=== PATIENT | male | born 1985 | race Caucasian/White ===

== ENCOUNTER 2023-04-21 13:19 | Inpatient (IN) | payer MEDICAID, SELFPAY ==
[2023-04-21] VITALS (7 sets, daily range): BP systolic 161–202; BP diastolic 79–120; PULSE 98–132; RESP 14–18; TEMP 36.2–36.8; O2SAT 97–99; BMI 31.9; BMI 29.5
--- NOTE | 2023-04-21 14:11 | EX.ED.SAOD ---
HPI History of Present Illness Chief Complaint: ETOH Intox Detail of Chief Complaint: Alcohol abuse. Alcohol withdrawal. Informant: patient and parent Onset/Context/Timing Onset: Today Context: Gradual Onset Timing: Continuous Current Severity: Moderate Maximum Severity: Moderate Associated Symptoms Associated Symptoms: Positive for vomiting* and tremor Narrative Narrative: 37-year-old male history of alcoholism. Drinks about 8-10 beers a day. Last drink yesterday. Believes he is going through withdrawal. Is considering detox. Patient is accompanied by his mother. Denies prior detox. States he had nausea and vomiting today. Tremors. Prior similar symptoms: Yes Recent Illness/Hospitalization: No PFSH PFSH Allergy/AdvReac Type Severity Reaction Status Date / Time No Known Allergies Allergy Verified 04/21/23 13:24 Social History Smoking Status: Never smoker ROS ROS ED ROS Narrative Nausea and vomiting. Tremors. Review of Systems ROS Unobtainable: Denies due to encephalopathy Constitutional Constitutional ED: Denies chills or fever(s) Eyes Eyes: Denies blurry vision ENT ENT ED: Denies ear pain Cardiovascular Cardiovascular: Denies chest pain Respiratory/Chest Respiratory/Chest: Denies cough or dyspnea Gastrointestinal Gastrointestinal: Reports nausea and vomiting; Denies abdominal pain, constipation, diarrhea or melena Genitourinary Genitourinary ED: Denies dysuria Musculoskeletal Musculoskeletal: Denies arthralgias Integumentary Denies abscess Neurologic Neurologic: Denies headache(s) Psychiatric Psychiatric: Denies anxiety or depression Endocrine Endocrinology: Denies cold intolerance Hematologic/Lymphatic Hematologic/Lymphatic: Denies easy bleeding Allergic/Immunologic Allergic/Immunologic ED: Denies mouth swelling EXAM Physical Exam Narrative Exam Narrative: 37-year-old male vital signs are stable his blood pressure is 202/103 and his pulse rate is 132. He is in withdrawal. Mom at bedside. H EENT exam unremarkable. He is diaphoretic. Neck nontender. Lungs clear. Heart tachycardic rate of 130 no murmur. Chest wall nontender. Abdomen soft nontender. Moving all 4 extremities. Nontender no edema. He is awake and alert. Answering questions following commands. He has tremors. Const Vital Signs: 04/21/23 13:21 04/21/23 13:20 04/21/23 15:24 Temperature 97.1 F L 97.8 F Temperature Source Temporal Temporal Pulse Rate 132 H 115 H 98 Respiratory Rate 18 16 16 Blood Pressure 202/103 H 164/79 H 174/99 H Blood Pressure Mean 136 107 124 Blood Pressure Source Monitor Pulse Ox 99 98 98 Oxygen Delivery Method Room Air Room Air Room Air Positive well nourished and well developed; Negative for cachectic, contractures or unkempt General Appearance ED: well developed; Negative for unkempt, cachectic, contractures or NAD Nutritional Appearance: Negative for cachectic HEENT Reports moist mucous membranes Negative for atraumatic, trauma or tenderness Eyes PERRL and EOMs intact bilaterally General Eye ED: Yes pale conjunctiva; Negative for scleral icterus Neck no lymphadenopathy, supple and no JVD Thyroid: Negative for tender Lymph Lymphatic: no lymphadenopathy noted; Negative for lymphadenopathy Chest Wall inspection of chest normal and palpation of chest normal Resp normal respiratory effort and clear to auscultation bilaterally Effort and Inspection: Negative for retractions Auscultation: Negative for rales, rhonchi or wheezes Cardio regular rhythm, S1 normal heart sound, S2 normal heart sound and no murmurs; Negative for regular rate Rate: tachycardic GI soft to palpation, non-tender, non-distended and no masses Inspection: Negative for abdominal distention Palpation: Negative for tender Back/Spine no CVA tenderness General Back: Negative for CVA tenderness Cervical Spine: Negative for cervical spine tenderness Thoracic Spine / Upper Back: Negative for thoracic spinal tenderness Lumbar Spine / Lower Back: Negative for lumbar spinal tenderness Coccyx: Negative for swelling Extremity General Extremety ED: Negative for edema or tenderness General Extremity: Negative for edema Neuro oriented x3 and CN's II-XII intact bilaterally Sensorium / Orientation: alert, oriented to person, oriented to place and oriented to time; Negative for confused, lethargic or stuporous Speech: speech normal Gait (Neuro): Negative for normal gait Motor Exam: strength 5/5 throughout Psych mental status grossly normal and thought process normal Appearance: Negative for unkempt Attitude: No belligerent, No agitated, No aggressive and No hostile Mood & Affect: anxious; Negative for depressed or tearful Skin General Skin Exam: Negative for jaundice Lesions: no lesions Rashes: no rashes Trauma: Negative for abrasion MDM MDM MDM Narrative Medical decision making narrative: 37-year-old male alcohol abuse currently going through alcohol withdrawal reported last drink was yesterday. Treat with IV fluids, screening labs. Zofran and Ativan. Reassessed. He is considering inpatient detox. Repeat exam patient looks much better after IV fluids, Ativan and Zofran. Clinically improved. He and I and his mother at bedside a long discussion he is willing to be admitted for detox. He has some type of appointment that he has to make on Friday and will discuss that with the hospitalist. Lab Data Attestation: I reviewed the patient's lab results. Lab results narrative: CBC shows a white count 8.5. H&H is 16 and 48. Platelets 208. Electrolytes show sodium 133 gap of 9. BUN and creatinine is 6 and 0.7. Liver enzymes are elevated. Including his AST, ALT. Alcohol level is only 12. Labs: Laboratory Results - last 24 hr 04/21/23 14:52 WBC 8.5 RBC 4.75 Hgb 16.3 Hct 48.0 MCV 101.1 H MCH 34.3 H MCHC 34.0 RDW Std Deviation 49.2 H RDW Coeff of Iman 13.1 Plt Count 208 MPV 9.8 Immature Gran % (Auto) 0.100 Neut % (Auto) 78.7 H Lymph % (Auto) 12.9 L [place] % (Auto) 7.0 Eos % (Auto) 0.1 Baso % (Auto) 1.2 H Absolute Neuts (auto) 6.7 Absolute Lymphs (auto) 1.09 Nucleated RBC % 0 Sodium 133 L Potassium 4.4 Chloride 100 Carbon Dioxide 24.0 Anion Gap 9 BUN 6 L Creatinine 0.71 Estim Creat Clear Calc 136.48 Est GFR (MDRD) Af Amer 158 Est GFR (MDRD) Non-Af 131 BUN/Creatinine Ratio 8.4 L Glucose 119 H Calcium 9.9 Total Bilirubin 1.20 H AST 191 H ALT 286 H Alkaline Phosphatase 115 Total Protein 9.3 H Albumin 5.0 Globulin 4.3 H Albumin/Globulin Ratio 1.2 Ethyl Alcohol 12.0 Discharge Plan Triage Chief Complaint: ETOH Intox ED Provider: Robert King Dx/Rx/DC Orders Clinical Impression: Acute alcoholism, Admitted to alcohol detoxification center, Alcohol withdrawal, Elevated liver enzymes Primary Care Provider: Pedrito Elkins Referrals: Pedrito Elkins MD [Primary Care Provider] - Disposition Disposition: [facility]
[2023-04-21] MEDS: 0.9% Normal Saline 1,000 ML 999 ML IV (15:02)
[2023-04-21] MEDS: Ondansetron 4 MG/2 ML Vial IV (15:02)
[2023-04-21] MEDS: LORazepam 2 MG/ML Syringe 1 MG IV (15:03)
[2023-04-21 15:12] LABS: Absolute Lymphocyte Count 1.09 X10^3/uL (0.83-4.51); Absolute Neutrophil Count 6.7 X10^3/uL (2.0-7.7); Basophil% 1.2 % (0-1); Eosinophil# 0.01 X10^3/uL; Eosinophils% 0.1 % (0-5); Hemoglobin 16.3 g/dL (13.0-16.5); Lymphocyte # 1.09 X10^3/ul (0.83-4.51); Lymphocyte % 12.9 % (19-41); Mean Corpuscular Hgb 34.3 pg (27.0-32.0); Mean Corpuscular Volume 101.1 fL (80-94); Mean Platelet Vol. 9.8 fl (6.2-12.0); Monocyte# 0.59 X10^3/uL; NRBC Flagged by Analyzer 0 % (0-5); Neutrophil # 6.65 X10^3/uL (2.7-7.7); Neutrophil % 78.7 % (47-70); Platelet Count 208 K/mm3 (150-450); RBC Distribution Width CV 13.1 % (11.6-14.6); RBC Distribution Width SD 49.2 fl (35.1-43.9); Red Blood Count 4.75 M/mm3 (4.6-6.2); White Blood Count 8.5 K/mm3 (4.4-11.0)
[2023-04-21 15:30] LABS: ALB/GLOB Ratio 1.2 RATIO (0.9-2.4); AST(SGOT) 191 U/L (15-37); Alanine Aminotransfer ALT/SGPT 286 U/L (16-61); Alkaline Phosphatase 115 U/L (45-117); Anion Gap 9 (5-15); BUN 6 mg/dL (7-18); BUN/Creat Ratio 8.4 RATIO (10-20); Calcium,Total 9.9 mg/dL (8.5-10.1); Chloride 100 mmol/L (98-107); Creatinine, Serum 0.71 mg/dL (0.70-1.30); EST Glomerular Filtration Rate 131 mL/min (>60); Est Glom Filt Rate - Afr Amer 158 mL/min (>60); Estimated Creatinine Clearance 136.48 ml/min; Globulin 4.3 g/dL (2.2-4.2); Glucose 119 mg/dL (74-106); Potassium 4.4 mmol/L (3.5-5.1); Protein, Total 9.3 g/dL (6.4-8.2); Sodium Level 133 mmol/L (136-145)
--- NOTE | 2023-04-21 16:16 | PCM.HP.STD ---
HPI - General General Date of Admission: 04/21/23 HPI Narrative ANTHONY GUTHRIE, is a 37 M who presents to the hospital requesting detox from alcohol. He drinks about 8-12 beers a day and his last drink was yesterday. On presentation he was very symptomatic which has improved with some IV fluids and Ativan in the ER. He denies any other drug use. Denies tobacco abuse. He has been a heavy drinker for about the last 10 years when he has had periods of sobriety denies any seizures with those episodes but is never formally gone through detox before [facility] no medical history Allergy/AdvReac Type Severity Reaction Status Date / Time No Known Allergies Allergy Verified 04/21/23 13:24 Family History (Updated 04/21/23 @ 16:[address] Enrique Teran MD) Other Cancer Diabetes Surgical History (Updated 04/21/23 @ 16:[address] Enrique Teran MD) Status post tonsillectomy and adenoidectomy Social History Smoking Status: Never smoker ROS Constitutional Constitutional: Denies chills, fatigue, fever(s) or malaise Eyes Eyes: Denies blurry vision ENT HEENT: Denies headache(s) or nasal discharge Cardiovascular Cardiovascular: Denies chest pain, dyspnea on exertion or syncope Respiratory/Chest Respiratory/Chest: Denies cough, shortness of breath at rest or shortness of breath with exertion Gastrointestinal Gastrointestinal: Reports nausea and vomiting; Denies constipation or diarrhea Genitourinary Genitourinary: Denies dysuria Neurologic Neurologic: Reports tremor(s); Denies focal weakness or numbness Psychiatric Psychiatric: Denies anxiety or depression Vital Signs Vital Signs Vital Signs: 04/21/23 13:21 04/21/23 13:20 04/21/23 15:24 Temperature 97.1 F L 97.8 F Temperature Source Temporal Temporal Pulse Rate 132 H 115 H 98 Respiratory Rate 18 16 16 Blood Pressure 202/103 H 164/79 H 174/99 H Blood Pressure Mean 136 107 124 Blood Pressure Source Monitor Pulse Ox 99 98 98 Oxygen Delivery Method Room Air Room Air Room Air Weight Weight: 210 lb Body Mass Index (BMI) 31.9 Physical Exam Narrative General: Alert, Oriented x3, Cooperative, No apparent distress, restless, diaphoretic HEENT: Atraumatic, PERRLA, EOMI, Normocephalic Oral: Moist Mucosa Neck: Supple, No JVD Lungs: Clear to auscultation, Normal air movement, No rhonchi, No wheeze, No rales Cardiovascular: Tachycardic, Regular Rhythm, Normal S1, Normal S2, No murmurs Abdomen: Soft, Non Tender, Non-Distended, No Hepato-splenomegaly Extremities: No edema, Capillary Refill Less than 3 Seconds Skin: No rashes, No breakdown Musculoskeletal: No Tenderness to Palpation of Joints or Extremities Neurological: Cranial nerves II-XII grossly intact, Motor Exam 5/5 strength throughout, Sensory exam intact to light touch and pain Psych/Mental Status: Flat affect Results Lab / Micro Data 04/21/23 14:52 04/21/23 14:52 Labs: Laboratory Results - last 24 hr 04/21/23 14:52: WBC 8.5, RBC 4.75, Hgb 16.3, Hct 48.0, MCV 101.1 H, MCH 34.3 H, MCHC 34.0, RDW Std Deviation 49.2 H, RDW Coeff of Iman 13.1, Plt Count 208, MPV 9.8, Immature Gran % (Auto) 0.100, Neut % (Auto) 78.7 H, Lymph % (Auto) 12.9 L, [place] % (Auto) 7.0, Eos % (Auto) 0.1, Baso % (Auto) 1.2 H, Absolute Neuts (auto) 6.7, Absolute Lymphs (auto) 1.09, Nucleated RBC % 0, Sodium 133 L, Potassium 4.4, Chloride 100, Carbon Dioxide 24.0, Anion Gap 9, BUN 6 L, Creatinine 0.71, Estim Creat Clear Calc 136.48, Est GFR (MDRD) Af Amer 158, Est GFR (MDRD) Non-Af 131, BUN/Creatinine Ratio 8.4 L, Glucose 119 H, Calcium 9.9, Total Bilirubin 1.20 H, AST 191 H, ALT 286 H, Alkaline Phosphatase 115, Total Protein 9.3 H, Albumin 5.0, Globulin 4.3 H, Albumin/Globulin Ratio 1.2, Ethyl Alcohol 12.0 Assessment & Plan Assessment/Plan (1) Desire for detoxification: (2) ETOH abuse: PLAN: Plan 1. Alcohol withdrawal/elevated LFTs ? Continue with the alcohol withdrawal protocol ? His LFTs are elevated, will monitor with the morning CMP ? We will have 180 follow-up for discharge planning DVT: Ambulation Charges/Coding Visit Charges Inpatient E&M: 82673 Init Hosp L2
[2023-04-21] MEDS: Gabapentin 300 MG Capsule PO (17:47)
[2023-04-21] MEDS: Dicyclomine 10 MG Capsule 20 MG PO (17:48)
[2023-04-21] MEDS: Ondansetron 8 MG Tablet PO (17:48)
[2023-04-21] MEDS: Phenobarbital 32.4 MG Tablet 64.8 MG PO ×2 (17:48→21:10)
[2023-04-21] MEDS: hydrOXYzine PAM 25 MG Capsule 50 MG PO (19:24)
[2023-04-21] MEDS: cloNIDine HCl 0.1 MG Tablet PO ×2 (19:24→21:10)
[2023-04-21] MEDS: traZODone 100 MG Tablet PO (21:11)
[2023-04-22 02:02] VITALS: BP 138/91; PULSE 90; RESP 14; TEMP 36.5; O2SAT 98
[2023-04-22] MEDS: Phenobarbital 32.4 MG Tablet 64.8 MG PO ×6 (02:04→20:59)
[2023-04-22 05:42] VITALS: BP 134/91; PULSE 83; RESP 14; TEMP 36.6; O2SAT 99
[2023-04-22] MEDS: cloNIDine HCl 0.1 MG Tablet PO ×3 (05:44→20:59)
[2023-04-22 07:27] LABS: ALB/GLOB Ratio 1.1 RATIO (0.9-2.4); AST(SGOT) 110 U/L (15-37); Alanine Aminotransfer ALT/SGPT 194 U/L (16-61); Albumin, Serum 3.8 g/dL (3.2-5.0); Alkaline Phosphatase 90 U/L (45-117); Anion Gap 4 (5-15); BUN 10 mg/dL (7-18); BUN/Creat Ratio 12.3 RATIO (10-20); Calcium,Total 8.9 mg/dL (8.5-10.1); Chloride 104 mmol/L (98-107); Creatinine, Serum 0.82 mg/dL (0.70-1.30); EST Glomerular Filtration Rate 112 mL/min (>60); Est Glom Filt Rate - Afr Amer 136 mL/min (>60); Estimated Creatinine Clearance 118.17 ml/min; Globulin 3.5 g/dL (2.2-4.2); Glucose 105 mg/dL (74-106); Potassium 4.3 mmol/L (3.5-5.1); Protein, Total 7.3 g/dL (6.4-8.2); Sodium Level 134 mmol/L (136-145)
[2023-04-22 09:19] VITALS: BP 148/82; PULSE 103; RESP 18; TEMP 36.6; O2SAT 97
[2023-04-22] MEDS: Folic Acid 1 MG Tablet PO (09:26)
[2023-04-22] MEDS: hydrOXYzine PAM 25 MG Capsule 50 MG PO ×3 (09:26→19:54)
[2023-04-22] MEDS: Dicyclomine 10 MG Capsule 20 MG PO ×2 (09:26→17:09)
[2023-04-22] MEDS: Thiamine Hydrochloride 100 MG Tablet PO (09:26)
[2023-04-22] MEDS: Ondansetron 8 MG Tablet PO (09:26)
--- NOTE | 2023-04-22 12:43 | CHAPLAIN ---
Type of Pastoral Visit _x__ Initial Visit ___ Follow-up Visit ___ On-call Visit ___ General Patient Visit ___ Spiritual Assessment ___ Family Conference ___ Bereavement ___ Rapid Response ___ Code Blue ___ Other (describe below) Pastoral Care Referral From _x__ Patient ___ Family ___ Nurse ___ Physician ___ [place] Cutter ___ Applied Technologist ___ Other (describe below) Sacrament/Intervention _x__ Active listening ___ Anointing ___ Shinto ___ Bereavement ___ Communion _x__ Shyanne exploration ___ _x__ Life review _x__ Prayer ___ Reconciliation ___ Sacrament of Sick _x__ Supportive presence ___ Wedding ___ Other (describe below) Pastoral Comments patient requested that to start the visit that he have a prayer said for him; offered prayer and allowed pt to speak about his move back to [place]/family and how he wants to stop the abuse of alcohol; patient has some support from his parents; pt lost his job and will look for a new one; pt has plans to use 180 for coping skills development as he recognizes that anxiety/stress is a problem for him; pt reviews his taoism shyanne and looking for spiritual help; pt is open to further visits
[2023-04-22 13:55] VITALS: BP 143/96; PULSE 99; RESP 18; TEMP 36.3; O2SAT 97
--- NOTE | 2023-04-22 16:12 | PCM.PN.HOSP ---
Reason for Visit Reason for Visit: Diagnoses Alcohol abuse, uncomplicated (04/21/23) Subjective Subjective Patient was seen and examined today, he did not meet with addiction social media developer today because he was too tired per nursing. Patient states that he has an outstanding DUI. Objective Data Objective Data Vital Signs: Vital Signs Temp Pulse Resp BP Pulse Ox O2 Del Method 97.4 F L 99 18 143/96 H 97 Room Air 04/22/23 13:55 04/22/23 13:55 04/22/23 13:55 04/22/23 13:55 04/22/23 13:55 04/22/23 13:55 Oxygen Delivery Method Room Air Weight: 88.3 kg Body Mass Index (BMI) 29.5 Intake & Output: Intake and Output for Last 24 Hours 04/20/23 04/21/23 04/22/23 23:59 23:59 23:59 Intake Total 1000 / 1600 1400 / 1400 Balance 1000 / 1600 1400 / 1400 Lab / Micro Data 04/21/23 14:52 04/22/23 06:50 Labs: Laboratory Results - last 24 hr 04/22/23 06:50: Sodium 134 L, Potassium 4.3, Chloride 104, Carbon Dioxide 26.0, Anion Gap 4 L, BUN 10, Creatinine 0.82, Estim Creat Clear Calc 118.17, Est GFR (MDRD) Af Amer 136, Est GFR (MDRD) Non-Af 112, BUN/Creatinine Ratio 12.3, Glucose 105, Calcium 8.9, Total Bilirubin 1.90 H, AST 110 H, ALT 194 H, Alkaline Phosphatase 90, Total Protein 7.3, Albumin 3.8, Globulin 3.5, Albumin/Globulin Ratio 1.1 Physical Exam Const alert, oriented x3, no apparent distress and average body habitus General Appearance: cooperative, well kempt and well developed Orientation / Consciousness: awake, oriented to person, oriented to place and oriented to time HEENT normocephalic, head/scalp atraumatic and moist oral mucous membranes Eyes PERRL, EOMs intact bilaterally and conjunctivae normal Neck supple, no JVD, thyroid normal and no carotid bruits General: trachea midline Resp normal respiratory effort, no retractions, no use of accessory muscles and clear to auscultation bilaterally Auscultation: Negative for rales, rhonchi or wheezes Cardio regular rate, regular rhythm, S1 normal heart sound, S2 normal heart sound, no murmurs, no rub and no gallops GI normal to inspection, nondistended, normoactive bowel sounds, soft to palpation, non-tender and non-distended Extremity no clubbing, cyanosis or edema Skin no rashes or lesions noted General Skin Exam: no breakdown Neuro oriented x3, CN's II-XII intact bilaterally, moves all extremities, no focal motor deficits and no sensory deficits noted Sensorium / Orientation: awake, alert, oriented to person, oriented to place and oriented to time Speech: speech normal Psych Psych Narrative: Patient has a flat affect Assessment & Plan Assessment/Plan (1) Desire for detoxification: PLAN: Plan 1. Acute alcohol withdrawal-patient will continue on his present medications, he will meet with addiction social media developer tomorrow #2 chronic alcoholism-patient will need a follow-up plan after discharge from the hospital, I discussed this briefly with him. #3 elevated liver enzymes-secondary to chronic alcohol usage, I will repeat the patient's liver profile tomorrow Total clinical time spent by myself addressing the patient's medical issues, reviewing all of his data, and collaborating with patient's care team: 25 minutes Charges/Coding Visit Charges Inpatient E&M: 67284 [facility] Hosp L1
[2023-04-22] MEDS: Gabapentin 300 MG Capsule PO (19:54)
[2023-04-22] MEDS: traZODone 100 MG Tablet PO (20:59)
[2023-04-22 21:00] VITALS: BP 149/94; PULSE 79; RESP 17; TEMP 36.8; O2SAT 100
[2023-04-23] MEDS: Phenobarbital 32.4 MG Tablet 64.8 MG PO ×2 (01:15→05:08)
[2023-04-23] MEDS: cloNIDine HCl 0.1 MG Tablet PO ×3 (05:08→22:49)
[2023-04-23 05:10] VITALS: BP 106/71; PULSE 76; RESP 17; TEMP 36.3; O2SAT 98
[2023-04-23 07:41] LABS: AST(SGOT) 100 U/L (15-37); Alanine Aminotransfer ALT/SGPT 179 U/L (16-61); Albumin, Serum 3.7 g/dL (3.2-5.0); Alkaline Phosphatase 85 U/L (45-117); Bilirubin, Direct 0.43 mg/dL (0.00-0.30); Globulin 3.4 g/dL (2.2-4.2); Protein, Total 7.1 g/dL (6.4-8.2)
[2023-04-23] MEDS: Folic Acid 1 MG Tablet PO (08:51)
[2023-04-23] MEDS: Thiamine Hydrochloride 100 MG Tablet PO (08:51)
[2023-04-23 11:10] VITALS: BP 112/84; PULSE 85; RESP 18; TEMP 36.3; O2SAT 98
[2023-04-23] MEDS: Phenobarbital 32.4 MG Tablet PO ×2 (15:00→22:49)
--- NOTE | 2023-04-23 16:27 | PN.HOSP_ITS ---
Reason for Visit Reason for Visit: Diagnoses Alcohol abuse, uncomplicated (04/21/23) Subjective Subjective Patient was seen and examined today, he still complains of feeling sleepy, I have elected to cut down his phenobarbital dosage. Patient's liver enzymes are improving. According to addiction nursing home social worker, patient will follow-up with [facility] for outpatient detox. Objective Data Objective Data Vital Signs: Vital Signs Temp Pulse Resp BP Pulse Ox O2 Del Method 97.4 F L 85 18 112/84 H 98 Room Air 04/23/23 11:10 04/23/23 11:10 04/23/23 11:10 04/23/23 11:10 04/23/23 11:10 04/23/23 11:10 Oxygen Delivery Method Room Air Weight: 88.3 kg Body Mass Index (BMI) 29.5 Intake & Output: Intake and Output for Last 24 Hours 04/21/23 04/22/23 04/23/23 23:59 23:59 23:59 Intake Total 1000 / 1600 1400 / 1400 Balance 1000 / 1600 1400 / 1400 Lab / Micro Data 04/21/23 14:52 04/22/23 06:50 Labs: Laboratory Results - last 24 hr 04/23/23 05:40: Total Bilirubin Cancelled, Direct Bilirubin Cancelled, AST Cancelled, ALT Cancelled, Alkaline Phosphatase Cancelled, Total Protein Cancelled, Albumin Cancelled, Globulin Cancelled 04/23/23 07:00: Total Bilirubin 1.30 H, Direct Bilirubin 0.43 H, AST 100 H, ALT 179 H, Alkaline Phosphatase 85, Total Protein 7.1, Albumin 3.7, Globulin 3.4 Physical Exam Const alert, oriented x3 and no apparent distress General Appearance: cooperative, well kempt and well developed Orientation / Consciousness: awake, oriented to person, oriented to place and oriented to time HEENT normocephalic, head/scalp atraumatic and moist oral mucous membranes Eyes PERRL, EOMs intact bilaterally and conjunctivae normal Neck supple, no JVD, thyroid normal and no carotid bruits General: trachea midline Resp normal respiratory effort, no retractions, no use of accessory muscles and clear to auscultation bilaterally Auscultation: Negative for rales, rhonchi or wheezes Cardio regular rate, regular rhythm, S1 normal heart sound, S2 normal heart sound, no murmurs, no rub and no gallops GI normal to inspection, nondistended, normoactive bowel sounds, soft to palpation, non-tender and non-distended Extremity no clubbing, cyanosis or edema Skin no rashes or lesions noted General Skin Exam: no breakdown Neuro oriented x3, CN's II-XII intact bilaterally, moves all extremities, no focal motor deficits and no sensory deficits noted Sensorium / Orientation: awake, alert, oriented to person, oriented to place and oriented to time Speech: speech normal Psych affect normal Assessment & Plan Assessment/Plan (1) ETOH abuse: (2) Desire for detoxification: PLAN: Plan 1. Acute alcohol withdrawal-patient will continue on his present medications-I have adjusted his phenobarbital dosage, he will follow-up with [facility] as an outpatient after discharge #2 chronic alcoholism-complicates care, medical course, recovery, and prognosis #3 elevated liver enzymes-secondary to chronic alcohol usage, patient's liver enzymes were improved today Total clinical time spent by myself addressing the patient's medical issues, reviewing all of his data, and collaborating with patient's care team: 25 minutes Charges/Coding Visit Charges Inpatient E&M: 83382 Subs Hosp L1
[2023-04-23 17:10] VITALS: BP 110/75; PULSE 79; RESP 16; TEMP 36.7; O2SAT 100
[2023-04-23 22:41] VITALS: BP 142/93; PULSE 81; RESP 18; TEMP 36.6; O2SAT 98
[2023-04-23] MEDS: hydrOXYzine PAM 25 MG Capsule 50 MG PO (22:49)
[2023-04-24 05:26] VITALS: BP 106/76; PULSE 84; RESP 18; TEMP 36.6; O2SAT 98
[2023-04-24] MEDS: Phenobarbital 32.4 MG Tablet PO ×2 (05:30→13:33)
[2023-04-24] MEDS: cloNIDine HCl 0.1 MG Tablet PO ×2 (05:30→13:33)
[2023-04-24] MEDS: Thiamine Hydrochloride 100 MG Tablet PO (08:31)
[2023-04-24] MEDS: Folic Acid 1 MG Tablet PO (08:31)
[2023-04-24 08:55] VITALS: BP 116/80; PULSE 92; RESP 16; TEMP 36.4; O2SAT 98
--- NOTE | 2023-04-24 10:38 | ADDICTION ---
This property underwriter met with PT to conduct ASAM, MSE, AUDIT, DUDIT assessments and to plan for d/c. PT A+Ox4 and participated actively. All assessments completed and placed in PT's chart. PT plans to f/u with [facility] in [place] for follow-up Outpatient treatment services. Pt did not report a need for transportation once discharged.
[2023-04-24 11:37] VITALS: BP 124/84; PULSE 91; RESP 16; TEMP 36.6; O2SAT 99
--- NOTE | 2023-04-24 12:08 | DS.PCM_ITS ---
Providers Date of Admission: 04/21/23 Primary Care Physician: Dr. Pedrito Elkins MD Reason For Visit: ETOH DETOX Diagnosis Discharge Diagnosis (1) ETOH abuse: Status: Acute Code(s): F10.10 - Alcohol abuse, uncomplicated (2) Desire for detoxification: Status: Acute Hospital Course Operations None Procedures None Summary of Care Provided Minutes Spent on Discharge: 36 Hospital Course: Per HPI: ANTHONY GUTHRIE, is a 37 M who presents to the hospital requesting detox from alcohol. He drinks about 8-12 beers a day and his last drink was yesterday. On presentation he was very symptomatic which has improved with some IV fluids and Ativan in the ER. He denies any other drug use. Denies tobacco abuse. He has been a heavy drinker for about the last 10 years when he has had periods of sobriety denies any seizures with those episodes but is never formally gone through detox before Hospital Course: 1. Alcohol withdrawal/elevated LFTs?37-year-old male who has been alcoholic for quite a long time presented to the hospital requesting detox. He does have a court date for it DWI that had to be postponed secondary to his treatment. He did complete the alcohol withdrawal protocol and feels much better today. He met with 180 to set up appointment with [facility], he is concerned about seeing his court date first so he would like to go home today to set up his court date prior to committing to a new [facility] appointments. I discussed with him the plan for discharge today he expressed understanding of the risk and benefits of going home and would like to go home today. Of note his liver function tests are improving likely related to his alcohol. Physical Exam Narrative General: Alert, Oriented x3, Cooperative, No apparent distress HEENT: Atraumatic, PERRLA, EOMI, Normocephalic Oral: Moist Mucosa Neck: Supple, No JVD Lungs: Clear to auscultation, Normal air movement, No rhonchi, No wheeze, No rales Cardiovascular: Tachycardic, Regular Rhythm, Normal S1, Normal S2, No murmurs Abdomen: Soft, Non Tender, Non-Distended, No Hepato-splenomegaly Extremities: No edema, Capillary Refill Less than 3 Seconds Skin: No rashes, No breakdown Musculoskeletal: No Tenderness to Palpation of Joints or Extremities Neurological: Cranial nerves II-XII grossly intact, Motor Exam 5/5 strength throughout, Sensory exam intact to light touch and pain Psych/Mental Status: Flat affect Weight / BMI Weight Weight: 194 lb 10.691 oz Body Mass Index (BMI) 29.5 ABG / Lab / Microbiology Data 04/21/23 14:52 04/22/23 06:50 D/C Instructions Discharge Diet: No restrictions Call your doctor if you observe: Fever of 101 or Higher, Shortness of breath, Dizziness, Fainting spells, Swelling in the ankles, Chest pain and Increased palpitations (irregular heartbeat) Meaningful Use Info Meaningful Use Diagnoses (Choose all that apply): None applicable Discharge Plan Admission Admit Date/Time: 04/21/23 16:14 Attending Provider: Enrique Teran Primary Care Provider: Pedrito Elkins Consulting Providers: Enrique Teran; Curry Dunn Discharge Orders/Prescriptions Referrals / Follow Up: Pedrito Elkins MD [Primary Care Provider] - Disposition Disposition (needs filled in before D/C Order can be placed): Home, Self Care Charges/Coding Visit Charges Inpatient E&M: 69567 Disch Hosp >30min
--- NOTE | 2023-04-24 12:08 | DCINST_ITS ---
Discharge Instructions Diet Discharge Diet: No restrictions Activity Discharge Activity: Return to Normal Activity Dressing / Incision Call your doctor if you observe: Fever of 101 or Higher, Shortness of breath, Dizziness, Fainting spells, Swelling in the ankles, Chest pain and Increased palpitations (irregular heartbeat) Follow Up Care Test Results: Test results from this visit will be discussed in further detail at your follow- up appointment, if applicable. Discharge Plan Admission Admit Date/Time: 04/21/23 16:14 Attending Provider: Enrique Teran Primary Care Provider: Pedrito Elkins Consulting Providers: Enrique Teran; Curry Dunn Discharge Orders/Prescriptions Referrals / Follow Up: Pedrito Elkins MD [Primary Care Provider] - Disposition Disposition (needs filled in before D/C Order can be placed): Home, Self Care
== END 2023-04-24 15:20 | disposition home or self-care (01) | DRG 775 ==
LOC: ED 16:17 → MS3 16:32
PROVIDERS: Internal Medicine; Admitting Provider Family Medicine; Emergency Provider Emergency Medicine; PCP Internal Medicine; Visit Provider Family Medicine
DX: F10.239 Alcohol dependence with withdrawal, unspecified (principal); Y90.0 Blood alcohol level of less than 20 mg/100 ml
CPT/HCPCS: 36415; 80053; 80076; 82077; 85025; 97802; 99285; J7030; J2405